=== PATIENT | male | born 1960 | race Caucasian/White ===

== ENCOUNTER → 2019-02-18 | Outpatient (CLI) | payer OTHER ==
--- NOTE | 2019-02-18 16:02 | RAD ---
5 views lumbar spine without comparison for back pain. FINDINGS: There is no fracture or acute osseous or alignment abnormality of the lumbar spine. There is mild narrowing of the L5-S1 intervertebral disc space. 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 No pars defects are evident. Vascular calcification are seen. IMPRESSION: 1. No acute osseous abnormality. 2. Mild degenerative changes of the lower lumbar levels. Electronically signed by: Silvestre Keller MD (02/18/2019 3:59 PM) [id number]
== END | disposition home or self-care (01) ==
LOC: PMG 08:59
PROVIDERS: ATTEND Physician Assistant Medical
DX: M47.816 Spondylosis without myelopathy or radiculopathy, lumbar region (principal); M48.07 Spinal stenosis, lumbosacral region
CPT/HCPCS: 72110